=== PATIENT | female | born 1935 | race Caucasian/White ===

== ENCOUNTER → 2017-10-19 | Outpatient (CLI) | payer OTHER ==
[~2017-10-19] MED LIST: ASPIR 8181 MG PO; CALCIUM 500 +1 EAC5 PO; FLONASE 0.05%50 MCG NASAL; METFORMIN HCL500 MG PO; SIMVASTATIN40 MG PO; SIMVASTATIN80 MG PO; THERA M PLUS T1 EAC2 PO; TUMS PO; TYLENOL EXTRA500 MG PO; UNICOMPLEX M TA1 TA1 PO; VITAMIN D32000 UNI1 PO; XARELTO10 MG PO; XARELTO20 MG PO
--- NOTE | ~2017-10-19 | 2DMMODE ---
[facility] [place] [address] 2 D/M-MODE ECHOCARDIOGRAM Name: ROBERT SON Room #: REG [facility]#: [id number] Admission: 10/19/17 Attend Phys: Blaine Arreola Discharge: Date of : 39 Date of Service: 10/19/17 1203 Report #: [id number] THIS REPORT FOR: //name// APPROVED REPORT Study performed: 10/19/2017 10:21:28 EXAM: Comprehensive 2D, Doppler, and color-flow Echocardiogram Patient Location: Out-Patient Status: routine BSA: 1.96 HR: 55 bpm BP: 136/63 mmHg Rhythm: NSR Other Information Study Quality: Adequate/lung artifact. Low parasternal window. Indications Afib, chest pain, short of breath. 2D Dimensions RVDd: 35.54 mm LVEF(%): 52.27 (>50%) IVSd: 9.41 (7-11mm) LVOT Diam: 19.80 (18-24mm) LVDd: 44.96 mm PWd: 7.89 (7-11mm) LVDs: 32.97 (25-40mm) Aortic Root: 32.70 mm Brooke's LVEF: 52.27 % Volumes Left Atrial Volume (Systole) Single Plane 4CH: 28.32 mL Single Plane 2CH: 40.95 mL LA ESV Index: 20.00 mL/m2 Aortic Valve AoV Peak Mo.: 1.52 m/s AO Peak Gr.: 9.24 mmHg LVOT Max P.26 mmHg LVOT Max V: 1.03 m/s JONATHAN Vmax: 2.09 cm2 Mitral Valve E/A Ratio: 1.[address] [facility] [address] [place] [address] 2 D/M-MODE ECHOCARDIOGRAM Name: ROBERT SON Room #: [facility]#: [id number] Admission: 10/19/17 Attend Phys: Blaine Arreola Discharge: Date of : 39 Date of Service: 10/19/17 1203 Report #: [id number] MV Decel. Time: 223.24 ms MV E Max Mo.: 0.77 m/s MV A Mo.: 0.68 m/s MV PHT: 64.74 ms IVRT: 110.73 ms Pulmonary Valve PV Peak Mo.: 0.94 m/s PV Peak Gr.: 3.55 mmHg Pulmonary Vein P Vein S: 0.74 m/s P Vein A: 0.39 m/s P Vein D: 0.49 m/s P Vein A Dur.: 110.7 msec P Vein S/D Ratio: 1.51 Tricuspid Valve TR Peak Mo.: 2.93 m/s RAP Estimate: 5.00 mmHg TR Peak Gr.: 34.33 mmHg PA Pressure: 39.00 mmHg Left Ventricle The left ventricle is normal size. There is normal LV segmental wall motion. There is normal left ventricular wall thickness. Left ventricular systolic function is normal. LVEF is 55-60%. Moderate diastolic dysfunction is present (pseudonormal filling). Right Ventricle The right ventricle is normal size. The right ventricular systolic function is normal. Atria The left atrium size is normal. The right atrium size is normal. Aortic Valve Aortic valve leaflets are mildly thickened. No aortic regurgitation is present. There is no aortic valvular stenosis. Mitral Valve Mitral valve leaflets are mildly thickened. Trace mitral regurgitation. Tricuspid Valve The tricuspid valve is normal in structure. Mild to moderate tricuspid regurgitation. Estiamted PAP is 40mmHg. Pulmonic Valve [address] [address] 2 D/M-MODE ECHOCARDIOGRAM Name: ROBERT SON Room #: REG [facility]#: [id number] Admission: 10/19/17 Attend Phys: [facility] Discharge: Date of : 39 Date of Service: 10/19/17 1203 Report #: [id number] The pulmonary valve is normal in structure. There is no pulmonic valvular regurgitation. Great Vessels The aortic root is normal in size. Ascending aorta is not well visualized. IVC is normal in size and collapses >50% with inspiration. Pericardium There is no pericardial effusion. <Conclusion> The left ventricle is normal size. Left ventricular systolic function is normal. Moderate diastolic dysfunction is present (pseudonormal filling). The right ventricle is normal size. The left atrium size is normal. Aortic valve leaflets are mildly thickened. Trace mitral regurgitation. Mild to moderate tricuspid regurgitation. Estiamted PAP is 40mmHg. There is no pericardial effusion. <ELECTRONICALLY SIGNED> By: Braulio Aquino MD 10/19/173 02 02 Braulio Aquino MD /INF
== END ==
LOC: NUC 07:18
DX: E78.5 Hyperlipidemia, unspecified (principal); R73.03 Prediabetes; I48.91 Unspecified atrial fibrillation; I07.1 Rheumatic tricuspid insufficiency

== ENCOUNTER → 2017-10-21 | Outpatient (CLI) | payer OTHER ==
[~2017-10-21] VITALS: Ht 170.2 cm; Wt 83.9 kg
--- NOTE | ~2017-10-21 | P ---
[facility] [place] [address] PROCEDURE REPORT Name: ROBERT SON Room #: REG [facility].#: [id number] Admission: 10/21/17 Attend Phys: Blaine Arreola MD Discharge: Date of : 39 Report #: [id number] THIS REPORT FOR: //name// CC: Kwesi Arreola PROCEDURE: Implantable loop recorder removal. PREOPERATIVE DIAGNOSIS: Implantable loop recorder elective replacement indicator. POSTOPERATIVE DIAGNOSIS: Implantable loop recorder elective replacement indicator. DESCRIPTION OF PROCEDURE: The patient was brought to the procedure suite. She was prepped in a sterile fashion. I injected lidocaine at the prior incision site. Incision was made and the implantable loop recorder was removed. A suture was placed and dressing was placed. There was no significant bleeding and no complications. <ELECTRONICALLY SIGNED> By: Blaine Arreola MD 11/15/1704 1120 27 Blaine Arreola MD /nt
[2017-10-21 10:31] VITALS: BP 117/57
== END | disposition home or self-care (01) ==
LOC: CATH 09:50
DX: Z45.2 Encounter for adjustment and management of vascular access device (principal); I48.0 Paroxysmal atrial fibrillation; M19.90 Unspecified osteoarthritis, unspecified site; Z85.3 Personal history of malignant neoplasm of breast; Z98.890 Other specified postprocedural states; I49.9 Cardiac arrhythmia, unspecified

== ENCOUNTER → 2017-10-27 | Outpatient (CLI) | payer OTHER ==
[~2017-10-27] VITALS: Ht 170.2 cm; Wt 83.9 kg
--- NOTE | ~2017-10-27 | EKG ---
[address] [address] ELECTROCARDIOGRAM REPORT Name: ROBERT SON Room #: [facility]#: [id number] Admission: 10/27/17 Attend Phys: Braulio Aquino MD Discharge: Date of : 39 Report #: [id number] THIS REPORT FOR: //name// [facility] Test Date: 2017-10-27 Test Time: 07:42:33 Pat Name: ROBERT SON Department: Room: Gender: F Algebra Teacher: Héctor ROBERT : 1935 Requested By: Braulio Aquino Order Number: [id number] MD: Blaine Arreola Measurements Intervals Page Rate: 60 P: 20 MO: 172 QRS: 26 QRSD: 100 T: 32 QT: 423 QTc: 423 Interpretive Statements Sinus rhythm No previous ECG available for comparison Electronically Signed On 10-27-2017 8:19:27 BINDERY LEADPERSON by Blaine Arreola [email or web address] <ELECTRONICALLY SIGNED> By: Blaine Arreola MD 10/27/17 0819 0742 0742 Blaine Arreola MD /TAHIRA
--- NOTE | ~2017-10-27 | CATHLAB ---
[facility] [place] [address] INVASIVE PROCEDURE REPORT Name: ROBERT SON Room #: REG [facility]#: [id number] Admission: 10/27/17 Attend Phys: Braulio Aquino MD Discharge: Date of : 39 Date of Service: 10/27/17 1350 Report #: [id number] THIS REPORT FOR: //name// APPROVED REPORT Patient Details Patient Status: Out-Patient Room #: The patient is a 82 year-old female Event Personnel Braulio Aquino Housing Officer, Emmanuel Villafana RN, Maikel Acosta Monitor, Rnada Gandhi, [place] Procedures Performed Art Access - R femoral artery* Left Heart Cath w/or w/o Coronaries [id number] [facility] [address] Initial Mod Sed Same Phys/QHP 5y [id number] Indication Positive stress test, Chest pain Risk Factors Hypercholesterolemia, Hypertension Procedure Narrative The Right Groin^ was infiltrated with 1% Lidocaine subcutaneous anesthesia. A PINNACLE 4FR Sheath #[id number] sheath was inserted into the RFA^. Coronary angiography was performed using coronary diagnostic catheters. The right coronary system was accessed and visualized with a JR4 catheter. The left coronary system was accessed and visualized with a JL4 catheter. The left ventricle was accessed and visualized with a Pigtail catheter. Left ventricular/Aortic Valve gradient assessed via catheter pullback. Left ventriculogram was performed in 30 degree projection. Hemostasis was obtained with manual pressure following sheath removal without any complications. The patient tolerated the procedure well and there were no complications associated with the procedure. There was no hematoma. Intraoperative Conscious Sedation Sedation start time: 09:34 Case end Time: 09:44 Versed 1.5 mg Fluoro Time: 1.46 minutes [facility] [place] [address] INVASIVE PROCEDURE REPORT Name: ROBERT SON Yaneli Room #: REG [facility]#: [id number] Admission: 10/27/17 Attend Phys: Braulio Aquino MD Discharge: Date of : 39 Date of Service: 10/27/17 1350 Report #: [id number] Dose: 291 mGy Contrast Type and Amount: Omnipaque 105 ml Coronary Angiography The patient's coronary anatomy is right dominant. Diagnostic Cath Left Main Large-caliber vessel, patent with no flow-limiting lesions. LAD Moderate size caliber vessel, traveling down the anterior wall in a tortuous pattern. Patent vessel with no flow-limiting lesions. Diagonal 1 Patent vessel, with no flow-limiting lesions. Circumflex Patent vessel, with no flow-limiting lesions. OM1 Patent vessel, with no flow-limiting lesions. Right Coronary Large, dominant vessel with mild stenosis in the proximal segment, 10%. R PDA Patent vessel, with no flow-limiting lesions. RPLV Patent vessel, with no flow-limiting lesions. Left Ventriculography The left ventricle is normal in size with normal contractility. Hemodynamics The aortic pressure is 117/65 mmHg with a mean of 86 mmHg. The left ventricular pressure is 121/5 mmHg with a mean of mmHg. The left ventricular end diastolic pressure is 17 mmHg. Conclusion 1. Angiographically normal left coronary artery. 2. 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 3. Normal LV systolic function. 4. Recommend medical therapy. <ELECTRONICALLY SIGNED> By: Braulio Aquino MD 10/27/17 1350 1350 1350 Braulio Aquino MD /INF
[2017-10-27 07:33] LABS: HEMATOCRIT 37.5 % (37.0-47.0); HEMOGLOBIN 12.8 gm/dL (12.0-15.0); MCH 31.4 pg (26.0-34.0); MCHC 34.2 g/dL (28.0-37.0); MCV 91.8 fL (80.0-100.0); RBC 4.09 mil/uL (4.20-5.00); RDW 13.7 % (10.5-14.5); WBC 5.7 thou/uL (4.0-11.0)
[2017-10-27 07:36] LABS: CALCIUM 9.5 mg/dL (8.5-10.1); CREATININE 0.7 mg/dL (0.6-1.0); POTASSIUM 4.2 mmol/L (3.5-5.1)
== END | disposition home or self-care (01) ==
LOC: CATH 06:47
PROVIDERS: Internal Medicine Cardiovascular Disease
DX: I25.10 Atherosclerotic heart disease of native coronary artery without angina pectoris (principal); I10 Essential (primary) hypertension; E78.00 Pure hypercholesterolemia, unspecified; I48.91 Unspecified atrial fibrillation; M19.90 Unspecified osteoarthritis, unspecified site; G47.33 Obstructive sleep apnea (adult) (pediatric); Z96.653 Presence of artificial knee joint, bilateral; Z98.890 Other specified postprocedural states; Z85.3 Personal history of malignant neoplasm of breast; Z79.82 Long term (current) use of aspirin; Z79.899 Other long term (current) drug therapy

== ENCOUNTER 2019-06-15 07:40 | Inpatient (IN) | payer OTHER ==
[~2019-06-15] VITALS: Ht 170.2 cm; Wt 90.7 kg
[2019-07-26] MEDS ORDERED: XALATAN2.5 ML OPHTHALMIC (14:56)
[2019-07-27 10:49] LABS: HEMATOCRIT 39.7 % (37.0-47.0); HEMOGLOBIN 13.1 gm/dL (12.0-15.0); MCH 30.7 pg (26.0-34.0); MCV 93.1 fL (80.0-100.0); RBC 4.26 mil/uL (4.20-5.00); RDW 13.5 % (10.5-14.5); WBC 5.7 thou/uL (4.0-11.0)
[2019-07-27 10:50] LABS: URINE BILIRUBIN NEGATIVE (Negative); URINE BLOOD NEGATIVE (Negative); URINE CLARITY CLEAR; URINE COLOR YELLOW; URINE GLUCOSE-RANDOM* NEGATIVE (Negative); URINE KETONES NEGATIVE (Negative); URINE LEUKOCYTES-REFLEX NEGATIVE (Negative); URINE NITRITE-REFLEX NEGATIVE (Negative); URINE PROTEIN (DIPSTICK) NEGATIVE (Negative); URINE UROBILINOGEN 0.2 E.U./dl (0.2-1.0)
[2019-07-27 10:58] LABS: ALBUMIN 3.8 g/dL (3.4-5.0); CALCIUM 9.6 mg/dL (8.5-10.1); CREATININE 0.8 mg/dL (0.6-1.0); POTASSIUM 4.5 mmol/L (3.5-5.1)
[2019-07-27 11:01] LABS: PROTIME 10.1 Seconds (9.3-11.4)
--- NOTE | 2019-07-27 16:29 | EKG ---
[address] [address] ELECTROCARDIOGRAM REPORT Name: ROBERT SON Room #: [facility]#: [id number] Admission: Attend Phys: Reyes Ng MD Discharge: Date of : 39 Report #: [id number] THIS REPORT FOR: //name// [facility] Test Date: 2019-07-27 Test Time: 10:43:51 Pat Name: ROBERT SON Department: Room: Gender: F Cloth Designer: GEORGE ARCE : 1935 Requested By: Reyes Ng Order Number: [id number] MD: Blaine Arreola Measurements Intervals [place] Rate: 57 P: -20 AL: 170 QRS: 22 QRSD: 100 T: 33 QT: 413 QTc: 402 Interpretive Statements Sinus rhythm Minimal ST elevation, anterior leads Compared to ECG 10/27/2017 07:42:33 ST (T wave) deviation now present Electronically Signed On 07-27-2019 16:29:09 CDT by Blaine Arreola [email or web address] <ELECTRONICALLY SIGNED> By: Blaine Arreola MD 07/27/19 1629 1043 Blaine Arreola MD /TAHIRA
[2019-07-28 02:06] LABS: GLYCOHEMOGLOBIN (HGB A1C) 5.9 % (4.8-5.6)
[2019-08-09 12:29] VITALS: BP 113/55
[2019-08-09 19:31] VITALS: BP 99/50
--- NOTE | 2019-08-10 04:02 | NUR ---
ASSUMED CARE OF PT @1900 PT A&OX4. RT DRESSING INTACT, LATISHA AND AND POLAR PACK INPLACE. UP WITH ASSISTX1 TO THE BATHROOM. KNEE PRECAUTION IN PLACE. NEUROVASCULAR CHECK, SENSATION AND CIRC INTACT. WEARS CPAP @ NIGHT. IV INTACT IN LFT HAND FLUIDS AND ABX INFUSING. WILL CONT WITH POC TILL EOS.
[2019-08-10 04:29] VITALS: BP 98/52
[2019-08-10 06:09] LABS: HEMATOCRIT 30.3 % (37.0-47.0); HEMOGLOBIN 10.1 gm/dL (12.0-15.0); MCH 31.3 pg (26.0-34.0); MCHC 33.2 g/dL (28.0-37.0); MCV 94.3 fL (80.0-100.0); RBC 3.22 mil/uL (4.20-5.00); RDW 13.7 % (10.5-14.5); WBC 9.6 thou/uL (4.0-11.0)
[2019-08-10 08:00] VITALS: BP 107/55
[2019-08-10 13:35] VITALS: BP 107/55
--- NOTE | 2019-08-10 14:09 | NUR ---
PT ADMITTED RELATED TO RIGHT TKA. CM REVIEWED CHART AND SPOKE WITH CARE TEAM. CM MET WITH PT AT BEDSIDE THIS DAY. PT IS A&O X4. CM ROLE INTRODUCED. PT INDICATED THAT SHE LIVES ALONE IN AN APARTMENT WITH 2 STEPS TO ENTER AND NO STEPS INSIDE. PT INDICATED SHE HAD A FWW AND A TOLIET RISER FOR USE AT HOME. PT INDICATED SHE WOULD LIKE [facility] FOR PT UPON [place]. THEY ARE ABLE TO ACCEPT PT UPON [place] ANDITIPATED THIS DAY. PT INDICATED THAT HER DTR IS A NURSE AND THAT SHE IS GOING TO STAY WITH HER UNTIL WEDNESDAY. PT'S DTR WILL PROVIDE TRANSPORT HOME IN PERSONAL VEHICLE.
--- NOTE | 2019-08-10 14:53 | NUR ---
FAXED REFERRAL TO [facility] SPOKE WITH AMAURY IN INTAKE AND SHE RECEIVED REFERRAL AND CAN ACCEPT PT. PT DISCHARGING TODAY FAXED DC ORDERS/SUMMARY TO [facility] THEY WILL NOTIFY PT TIME OF VISITS.
--- NOTE | 2019-08-10 16:06 | PATH ---
[facility] [place] [address] PATHOLOGY RPT PROCEDURE Name: ROBERT SON Room #: 441-P ADM IN M.R.#: [id number] Admission: 08/09/19 Date of : 39 Discharge: Report #: [id number] Path Case #: [id number] [facility] Accession Number: [id number] . 01 Material submitted: . knee - RIGHT KNEE SYNOVIUM,FS. Modifiers: right . 02 Frozen section diagnosis: . FROZEN SECTION DIAGNOSIS: (Denise De La Torre M.D.): . FSA1. Synovium, right knee synovium, biopsy: - Scattered areas/foci with acute inflammation, neutrophils greater than 5/HPF. . These findings are discussed with Dr. Reyes Ng in OR5 at [facility] and a written report is placed in the patient's chart. . FROZEN SECTION GROSS DESCRIPTION: The specimen is received fresh from the OR labeled with the patient's name, and "right knee synovium" consists of an aggregate of shiny soft tissue fragment measuring approximately 3.5 x 3.0 x 1.0 cm. The shiny surface resembling synovium grossly is submitted for frozen section as FSA1, this is subsequently submitted for permanent section. The unfrozen portion of the tissue is submitted entirely in A2-A4. (IUV/db; 08/09/2019) . Frozen section performed at [facility], [address], [place] [address]. IZV/LBQ . 02 Diagnosis: Synovium, right knee synovium, biopsy: - Scattered foci of acute inflammation present (greater than 5/hpf), see comment. - Background of marked cellularity comprised of chronic inflammation, macrophages including giant cell reaction associated with focal dystrophic calcifications, consistent with reparative/reactive changes. - Reactive synovial hyperplasia. (IUV:pit; 08/10/2019) QTP 08/10/2019 1348 Local . 02 Comment: Greater than 10 high power ashraf are examined including the frozen section slides as well as the permanent section slides in blocks A1 to A4, several foci of acute inflammation are identified. However, the background is markedly cellular with chronic inflammation, macrophages, as [facility] [address] [place] [address] PATHOLOGY RPT PROCEDURE Name: RICHIE SONYELITZA Groves Room #: 441-P ADM IN M.R.#: [id number] Admission: 08/09/19 Date of : 39 Discharge: Report #: [id number] Path Case #: [id number] well as giant cells present. As suggested intraoperatively, clinical correlation is required. (IUV:pit; 08/10/2019) . 02 Electronically signed: . Denise De La Torre MD, Pathologist NPI- [id number] . 01 Gross description: . SEE FROZEN SECTION GROSS DESCRIPTION. To be dictated by the pathologist /LBQ 08/09/2019 1718 Local . 02 Pathologist provided ICD-10: M65.9 . 02 CPT . 307952, [id number] Specimen Comment: A courtesy copy of this report has been sent to [phone] Specimen Comment: Report sent to / DR CAMACHO Performed at: [address], [place] [id number] MD Sundeep Fuentes MD Phone: [phone] Performed at: [address] [id number] MD Denise De La Torre MD Phone: [phone]
--- NOTE | 2019-08-10 17:00 | NUR ---
ASSUMED CARE OF PT AT 1130 FROM AM NURSE. PT DOING WELL POST OP AMBULATING STEADY W/ WALKER. PAIN CONTROLLED W/ MEDS. DISCHARGE AT THIS TIME AFTER DISCHARGE TEACHING.
--- NOTE | 2019-08-13 09:28 | O ---
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 PROCEDURE: Revision of right total knee arthroplasty, all three components. SURGEON: Reyes Ng MD. GAME SHOW HOST: Steph Gong PA-C. INDICATIONS FOR GAME SHOW HOST: Throughout the case, extensive retraction and manipulation of the knee was required. This was afforded to me by my printer assistant. ANESTHESIA: LMA with an adductor canal block. IMPLANTS: Mehta and Nephew size 5 Legion Oxinium constrained revision femoral component with a 15 x 160 femoral stem and a 6 mm offset machine presser size 4 tibia with a 16 x 160 mm stem and a 2 mm offset machine presser and a size 18 highly constrained articular polyethylene insert and a size 32 patella. TOURNIQUET TIME: 76 minutes. ESTIMATED BLOOD LOSS: 50 mL. COMPLICATIONS: None. SPECIMENS: Cultures were sent x 2 as well as intraoperative frozen section. CONDITION UPON LEAVING THE OPERATING ROOM: Stable. INDICATIONS FOR PROCEDURE: The patient is an 84-year-old female who has previously had a right total knee arthroplasty over 15 years ago. She has had progressive pain in this knee as well as signs of aseptic loosening secondary to polyethylene wear on her x-ray. We revised her left knee about a year ago and she did well with this and elected for right knee revision. [address] [address] OPERATIVE REPORT Name: ROBERT SON Room #: 441-P DIS IN .R.#: [id number] Admission: 08/09/19 Attend Phys: Reyes Ng MD Discharge: 08/10/19 Date of : 39 Report #: [id number] DESCRIPTION OF PROCEDURE: Risks, benefits, alternatives, complications were discussed in detail with the patient including but not limited to risk of anesthesia, risk of damage to nerves, arteries, blood vessels, risk for infection, bleeding, risk for continued knee pain and need for reoperation. Informed consent was obtained from the patient. Right knee was appropriately marked in the preoperative holding area. IV Ancef was given for preoperative antibiotics. Adductor canal block was placed by Anesthesia. She was brought to the operating room and placed in supine position on operating room table. LMA anesthesia was induced without complication. Tourniquet was placed on the right thigh. Right lower extremity was prepped and draped in normal sterile fashion. Timeout was performed properly identifying the patient and procedure as well as the instrumentation and implants. All in the operating room were in agreement. Right lower extremity was exsanguinated, tourniquet was inflated. Tourniquet time was 76 minutes. Previous scar was used and this was excised with a #10 blade. Dissection was then taken down sharply to the fascia and deep flaps were developed medially and laterally. Fresh 10-blade was used to make a medial parapatellar arthrotomy and there was normal-appearing joint fluid. Cultures of this were taken x 2. Synovial samples were taken and sent to pathology for intraoperative frozen, which did show some neutrophils per high power field; however, it was felt that this was still aseptic loosening secondary to a negative workup preoperatively. The polyethylene insert was removed and the femoral component was easily removed with dissection using curved osteotome. There was extensive osteolysis of the medial and lateral femoral condyles. After this, attention was then turned to the tibia. The tibia component was easily removed and this was popped out with just one hit with the osteotome. There was extensive osteolysis of the tibial plateau also. After this, the femoral and tibial canals were sequentially reamed up to a size 15 for the femur and a size 16 for the tibia. Tibial resection guide was pinned in place using the reamer for reference and a tibial cleanup cut was made. Tibia was sized, found to be a size 4 that fit best with a 2 mm offset machine presser. The tibia was prepared and the tibial trial was placed. Attention was then turned to the femur. The size 5 femur resection guide fit best and was pinned in place. Anterior, posterior and chamfer cuts were made. There was enough distal and posterior bone wedges were needed. The femur fit best with a 6 mm offset machine presser in the 6 o'clock position. After this, femoral trial was placed. This was then trialed with multiple polyethylene insert up to a size 18 constrained insert, which had the best fit. After this, the previous patellar component was removed with an oscillating saw and a size 32 patellar trial button was placed. Knee was taken through range of motion, found to be stable, found to have good balance in flexion and extension both medially and laterally. After this, trial components were removed. Bony ends were thoroughly irrigated with normal saline. The final tibial and femoral implants were cemented in place using standard cementation techniques as well as the patella was cemented using standard cementation techniques. While the cement cured, a periarticular injection consisting of morphine, ropivacaine, epinephrine and Toradol was placed around the knee joint capsule. After the cement cured, tourniquet was [facility] [address] [place] [address] OPERATIVE REPORT Name: ROBERT SON Yaneli Room #: 441-P [facility] IN M.R.#: [id number] Admission: 08/09/19 Attend Phys: Reyes Ng MD Discharge: 08/10/19 Date of : 39 Report #: [id number] deflated. Hemostasis was obtained with Bovie cautery. Final size 18 highly constrained polyethylene insert was placed. A gram of vancomycin was placed deep in the joint. The fascia was closed with 0 Vicryl, skin was closed with 2-0 Vicryl, skin staple and a LATISHA dressing was applied. The patient tolerated this procedure well and went to recovery room under care of anesthesia postoperatively. <ELECTRONICALLY SIGNED> By: Reyes Ng MD 08/13/19 0928 1755 1918 Reyes Ng MD /nt
== END 2019-08-10 18:47 | disposition home health service (06) | DRG 468 ==
LOC: OR 07:40 → EDSTATUS 07:52 → PRE 07:53 → 4S 08-09 10:44 → TBA 08-09 10:44 → PRE 08-09 11:05 → 4S 08-09 18:08 → ENTRNSPT 08-10 17:02 → 4S 08-10 18:47
PROVIDERS: ADMIT Orthopaedic Surgery
DX: T84.032A Mechanical loosening of internal right knee prosthetic joint, initial encounter (principal); Z79.899 Other long term (current) drug therapy
CPT/HCPCS: 10102; 50010; 50101; 50415; 50954; 51130; 51225; 51320; 51412; 52001; 52282; 53000; 53078; 55389; 56528; 57095; 57103; 57110; 57180; 62110; 62900; 64039; 70005

== ENCOUNTER 2019-08-11 14:36 | Inpatient (IN) | payer OTHER ==
[~2019-08-11] VITALS: Ht 170.2 cm; Wt 92.5 kg
[~2019-08-11 14:36] MED LIST changes: +XALATAN2.5 ML OPHTHALMIC
[2019-08-11 14:42] VITALS: BP 76/38
[2019-08-11 15:16] LABS: HEMATOCRIT 30.5 % (37.0-47.0); HEMOGLOBIN 10.3 gm/dL (12.0-15.0); MCH 31.6 pg (26.0-34.0); MCHC 33.9 g/dL (28.0-37.0); MCV 93.2 fL (80.0-100.0); PLATELET COUNT 187 thou/uL (150-400); RBC 3.27 mil/uL (4.20-5.00); RDW 13.9 % (10.5-14.5); WBC 5.8 thou/uL (4.0-11.0)
[2019-08-11 15:24] LABS: ANION GAP 8 mmol/L (7-16); BUN 15 mg/dL (7-18); CALCIUM 8.4 mg/dL (8.5-10.1); CHLORIDE 100 mmol/L (98-107); CO2 27 mmol/L (21-32); CREATININE 0.9 mg/dL (0.6-1.0); GLUCOSE 238 mg/dL (74-106); POTASSIUM 3.9 mmol/L (3.5-5.1); SODIUM 135 mmol/L (136-145)
[2019-08-11 15:34] LABS: ALBUMIN 2.9 g/dL (3.4-5.0); DIRECT BILIRUBIN 0.1 mg/dL (<0.1-0.3); SGOT 20 U/L (15-37); SGPT 12 U/L (30-65); TOTAL BILIRUBIN 0.4 mg/dL (<0.1-1.0); TOTAL PROTEIN 6.1 g/dL (6.4-8.2); TROPONIN-I <0.06 ng/mL (<0.06)
--- NOTE | 2019-08-11 15:44 | NUR ---
US CALLED, ENROUTE TO OBTAIN ORDERED EXAM
[2019-08-11 15:49] LABS: ABSOLUTE NEUTROPHILS 3.5 thou/uL (1.4-8.2)
[2019-08-11 15:50] LABS: SCHISTOCYTES OCCASIONAL
[2019-08-11 19:40] VITALS: BP 127/50
[2019-08-11 19:58] VITALS: BP 114/47
--- NOTE | 2019-08-12 03:11 | NUR ---
ARRIVED ON UNIT AT 1950 VIA CART ACCOMPANIED BY ED PERSONEL AND FAMILY. PATIENT ALERT AND ORIENTED X4. R LEG EDEMATOUS, RED IN SPOTS AND WARM TO TOUCH. PATIENT STATES CAN NOT EVEN LIFT HER LEG. LATISHA DRESSING ON R KNEE D/I. POLAR PAC ON R KNEE. ACCUCHECK WAS 109, NO INSULIN GIVEN. C/O PAIN, MED GIVEN. SLEPT MOST OF NIGHT.
[2019-08-12 04:19] VITALS: BP 109/46
[2019-08-12 06:05] LABS: CALCIUM 8.8 mg/dL (8.5-10.1); CREATININE 0.7 mg/dL (0.6-1.0); POTASSIUM 3.6 mmol/L (3.5-5.1)
[2019-08-12 08:16] VITALS: BP 108/46
--- NOTE | 2019-08-12 10:38 | NUR ---
PATIENT GIVEN PRN PAIN MED IS USING BSC, APPETITE GOOD. HAS POLAR WILBERTO INTACT TO RIGHT KNEE. THERAPY TO WORK WITH PATRIENT.
[2019-08-12 17:53] VITALS: BP 116/52
[2019-08-12 20:50] VITALS: BP 105/46
--- NOTE | 2019-08-13 03:00 | NUR ---
SUNDAYNET ALERT AND ORIENTED X4. UP TO BSC. ABLE TO MOVE R LEG SOME BY SELF. POLAR ICE ON R KNEE WITH LATISHA DRESSING UNER. C/O PAIN, MED GIVEN. ACCUCHECK WAS 125, NO INSULIN COVERAGE NEEDED. SLEPT MOST OF NIGHT.
[2019-08-13 05:05] VITALS: BP 102/49
[2019-08-13 08:57] VITALS: BP 99/43
--- NOTE | 2019-08-13 10:46 | NUR ---
DR GLEASON HERE TO SEE PATIENT ASSESSED RIGHT KNEE STATES IS OKAY SHE NEEDS UP IN CHAIR AND WORKING WITH THERAPY ALSO PUT IN ORDER TO HAVE X- RAY. DR ANGEL HERE ALSO AND TOLD PATIENT SAME THINGS. PT IS PLEASANT AND COOPERATIVE AND IS UP IN BEDSIDE CHAIR AT THIS TIME.
--- NOTE | 2019-08-13 11:20 | EKG ---
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
[2019-08-13 17:12] VITALS: BP 109/60
[2019-08-13 19:20] VITALS: BP 119/61
--- NOTE | 2019-08-13 23:54 | NUR ---
ASSESSMENT COMPLETED. PT IS ALERT AND ORIENTED. R KNEE WITH LATISHA DRSG INTACT. POLAR WILBERTO ALSO IN PLACE.R KNEE WITH SWELLING, PT GIVEN HYDROCODONE PRN WITH RELIEF. SHE WALKED WELL TO THE BATHROOM USING ROLLER WALKER.VSS. ROOM AIR AND SATTING OKAY.FALL PREC IN PLACE.NO FURTHER CONCERNS AT THIS TIME.
[2019-08-14 04:25] VITALS: BP 114/59
[2019-08-14 07:47] VITALS: BP 105/58
--- NOTE | 2019-08-14 11:36 | NUR ---
PT A&0X4, IV INTACT IN L AC. LATISHA DRSG TO R KNEE INTACT WITH POLAR PACK. TOLERATING PO WELL. SITTING IN CHAIR AFTER UP WITH PT. WILL CONT POC.
--- NOTE | 2019-08-14 12:47 | NUR ---
PATIENT SEEN BY DR. CANNON THIS DATE FOR REHAB CONSULT. PATIENT DOES NOT HAVE MEDICAL NECESSITY FOR ACUTE REHAB STAY. STOCK ROOM MANAGER INFORMED. THANK YOU FOR THIS REFERRAL.
--- NOTE | 2019-08-14 16:38 | NUR ---
ASSESSMENT-PT LIVES ALONE. SHE HAS A DTR HERE, ANOTHER DTR IN [place] AND ANOTHER IN [place]. PT HAS A ROLLER WALKER TO GET AROUND AND PRIOR TO SURGERY WAS TAKING A SHOWER. PT WAS DISCHARGED ON WITH [facility] MULLIGAN AND READMITTED ON WEDNESDAY. 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 PT IS INTERESTED IN REHAB AND WANTED TO GO TO [address]. DR CANNON DID EVAL AND SAYS PT DOES NOT HAVE MEDICAL NECESSITY. DISCUSSED SKILLED REHAB FACILITIES WITHIN [facility] AND SHE WAS INTERESTED IN [facility] BUT THEY ARE FULL. SHE WANTS [facility] OR [facility] IN THAT ORDER. ASKED DC ASTROBIOLOGIST TO SEND REFERRALS AND SUBMIT FOR INS AUTH. FOLLOWING.
[2019-08-14 16:54] VITALS: BP 114/46
--- NOTE | 2019-08-14 16:55 | NUR ---
FAXED REFERRAL TO [facility] SPOKE WITH KAYLI IN ADM SHE RECEIVED REFERRAL AND CAN ACCEPT WILL LOOK INTO BED STATUS IN THE AM. FAXED REFERRAL TO [facility] OF OP RECEIVED CONFIRMATION AND WILL F/U WITH FACILITY IN THE MORNING. DP TO FOLLOW.
[2019-08-14 20:05] VITALS: BP 110/46
--- NOTE | 2019-08-15 04:29 | NUR ---
Assumed pt care at 1900. Pt is A/OX4,VSS. Up with assist of 1 RW/GB to bathroom verbalizes feeling much better in terms of pain and requested for Tylenol at HS with relief reported. Pt is continent of B&B. LATISHA dsg/polar pack in place on right knee w/o any problems reported. Fall precautions implemented,resting quietly at this time. Will continue to monitor pt.
[2019-08-15 04:30] VITALS: BP 109/52
[2019-08-15 08:22] VITALS: BP 102/45
--- NOTE | 2019-08-15 09:44 | NUR ---
PT UP IN BEDSIDE CHAIR TOOK AM MEDS ATE BREAKFAST. BLOOD SUGAR MONITORED. PICCO DRESSING INTACT TO RIGHT KNEE. PT GIVEN PRN PAIN MED AND IS WORKING WITH THERAPY. PT PLEASANT AND COOPERATIVE WITH CARE.
[2019-08-15 12:13] VITALS: BP 102/45
--- NOTE | 2019-08-15 12:13 | NUR ---
Following for d/c planning needs. Reviewed chart and spoke with nurse and pt. Pt now states she wants to return home with home health, and is not interested in going to SNF. Notified production planner to arrange home health. Pt was on service with [facility] and wants to resume. No other needs indicated.
[2019-08-15 12:24] VITALS: BP 102/45
--- NOTE | 2019-08-15 13:56 | NUR ---
DISCHARGE PAPERS GONE OVER WITH PATIENT SIGNED AND COPY IN CHART. IV ACSESS DCD. ALL BELONGINGS PACKED AND PATIENT TO TAKE HOME. POLAR PACK TO BE SENT WITH PATIENT SHE THOUGHT SHE LOST CORD BUT SHE HAD PACKED.
--- NOTE | 2019-08-15 14:36 | NUR ---
FAXED REFERRAL TO [facility] SPOKE WITH AMAURY IN ADM SHE RECEIVED REFERRAL AND CAN ACCEPT. FAXED DC ORDERS/SUMMARY RECEIVED CONFIRMATION AND THEY WILL NOTIFY PT TIME OF VISITS.
[2019-08-15 14:51] VITALS: BP 102/45
--- NOTE | 2019-08-16 07:23 | NUR ---
PATIENT DISCHARGED BEFORE O.T. EVALUATION ORDERED.
--- NOTE | 2019-08-22 12:00 | HC ---
[facility] [place] [address] CONSULTATION Name: ROBERT SON Room #: 437-P [facility] IN .R.#: [id number] Admission: 08/11/19 Attend Phys: Abimbola Leung MD Discharge: 08/15/19 Date of : 39 Report #: [id number] THIS REPORT FOR: //name// CC: Abimbola Leung Kwesi Jacobsy DATE OF SERVICE: 08/14/2019 HISTORY OF PRESENT ILLNESS: The patient is an 84-year-old white female admitted with a prior right total knee arthroplasty revision 08/09/2019. She initially went home, but then had more and more problems with increased pain and complains of weakness and inability to ambulate. She had problems walking. She was readmitted. Her medications have been adjusted. Ice pack applied. Working on knee range of motion again with her decreased function. We are seeing her in rehabilitation medicine consultation. PAST MEDICAL HISTORY: Includes diabetes mellitus type 2, hyperlipidemia, atrial fibrillation, degenerative arthritis. She has had prior bilateral total knee replacements and these were both done approximately 25 years ago. She had a left knee revision done last year without complication. History of obstructive sleep apnea, elevated cholesterol, glaucoma, tubal ligation. MEDICATIONS: Please see the full medication listing. SOCIAL HISTORY: Lives in an apartment alone, one step in. Did not utilize gait aids. She does have daughters that are out of state, but are involved. HABITS: No history of tobacco or alcohol abuse. REVIEW OF SYSTEMS: No current complaints of chest pain, shortness of breath or abdominal discomfort. PHYSICAL EXAMINATION: GENERAL: Pleasant 84-year-old white female in no obvious distress. VITAL SIGNS: Last recorded temperature 98.4, pulse 66, respirations 18, blood pressure 105/58. The patient is alert. She is pleasant. HEENT: Appeared to be benign. NEUROLOGIC: Cranial nerves grossly intact. Facies are symmetric. EXTREMITIES: She has functional range of motion of both upper extremities without obvious focal weakness. DTRs are trace to 1. In her lower extremities, she has a well-healed prior left total knee replacement incision. Right knee is dressed. She has ice pack in place with Keith wrap. She is able to dorsiflex the right ankle. She can flex the right hip without obvious focal weakness. She does have range of motion of the right knee, but again the ice pack is in place and I did not remove. She had physical therapy involved and they are working with her. She is min assist with sit to stand. Gait was 150 feet min assist [address] [address] CONSULTATION Name: ROBERT SON Room #: [facility]#: [id number] Admission: 08/11/19 Attend Phys: Abimbola Leung MD Discharge: 08/15/19 Date of : 37 Report #: [id number] with a front-wheeled walker. ASSESSMENT: An 84-year-old white female with following problems: 1. Revision of right total knee arthroplasty for aseptic loosening of the prosthetic knee. 2. Knee pain and complains of decreased function. 3. Diabetes mellitus. 4. Hyperlipidemia. 5. Atrial fibrillation. 6. Prior left total knee replacement. PLAN: She has improved from her admission status, although she still has weakness of the right lower extremity and decreased functional mobility and ADLs. Insurance will be checked regarding rehab therapy issues. Thank you for asking us to assist in this patient's care. <ELECTRONICALLY SIGNED> By: Maikel Galan MD 08/22/19 1200 [id number] [id number] Maikel Galan MD /nt
== END 2019-08-15 14:53 | disposition home health service (06) | DRG 947 ==
LOC: ER 14:36 → 4S 19:00 → EROBS 19:00 → 4S 20:11 → ENTRNSPT 08-15 14:31 → 4S 08-15 14:53
PROVIDERS: Emergency Medicine; Nurse Practitioner Family; ADMIT Hospitalist
DX: G89.18 Other acute postprocedural pain (principal); E43 Unspecified severe protein-calorie malnutrition; M25.561 Pain in right knee; I48.91 Unspecified atrial fibrillation; M19.90 Unspecified osteoarthritis, unspecified site; Z96.653 Presence of artificial knee joint, bilateral; M81.0 Age-related osteoporosis without current pathological fracture; E78.00 Pure hypercholesterolemia, unspecified; E78.5 Hyperlipidemia, unspecified; E11.9 Type 2 diabetes mellitus without complications; G47.33 Obstructive sleep apnea (adult) (pediatric); Z68.31 Body mass index [BMI] 31.0-31.9, adult; Z86.718 Personal history of other venous thrombosis and embolism; Z79.84 Long term (current) use of oral hypoglycemic drugs; Z79.01 Long term (current) use of anticoagulants
CPT/HCPCS: 10195

== ENCOUNTER → 2020-04-09 | Outpatient (CLI) | payer OTHER ==
--- NOTE | 2020-04-09 09:37 | 2DMMODE ---
[facility] [place] [address] 2 D/M-MODE ECHOCARDIOGRAM Name: ROBERT SON Room #: [facility]#: [id number] Admission: 04/09/20 Attend Phys: Blaine Arreola MD Discharge: Date of : 37 Report #: [id number] THIS REPORT FOR: cc: Kwesi Rocha MD, Bernard O. MD Park, Jin S. MD ~ APPROVED REPORT Study performed: 04/09/2020 08:59:04 EXAM: Comprehensive 2D, Doppler, and color-flow Echocardiogram Patient Location: Out-Patient Status: routine BSA: 1.99 HR: 55 bpm BP: 130/72 mmHg Rhythm: NSR Other Information Study Quality: Adequate/lung artifact. Low window. Indications History of Afib. 2D Dimensions RVDd: 37.23 mm IVSd: 9.17 (7-11mm) LVOT Diam: 21.64 (18-24mm) LVDd: 40.13 mm PWd: 7.85 (7-11mm) LVDs: 28.41 (25-40mm) Aortic Root: 35.47 mm Volumes Left Atrial Volume (Systole) Single Plane 4CH: 37.47 mL Single Plane 2CH: 44.35 mL LA ESV Index: 22.00 mL/m2 Aortic Valve AoV Peak Mo.: 1.44 m/s AO Peak Gr.: 8.25 mmHg LVOT Max P.39 mmHg LVOT Max V: 1.05 m/s JONATHAN Vmax: 2.68 cm2 [facility] [address] [place] [address] 2 D/M-MODE ECHOCARDIOGRAM Name: ROBERT SON Yaneli Room #: REG Dan[facility]#: [id number] Admission: 04/09/20 Attend Phys: Blaine Gabrielcox northleanna Discharge: Date of : 37 Report #: [id number] Mitral Valve E/A Ratio: 0.8 MV Decel. Time: 358.22 ms MV E Max Mo.: 0.55 m/s MV A Mo.: 0.69 m/s MV PHT: 103.88 ms IVRT: 92.27 ms Pulmonary Valve PV Peak Mo.: 1.13 m/s PV Peak Gr.: 5.15 mmHg Pulmonary Vein P Vein S: 0.47 m/s P Vein A: 0.32 m/s P Vein D: 0.37 m/s P Vein A Dur.: 147.6 msec P Vein S/D Ratio: 1.27 Tricuspid Valve TR Peak Mo.: 2.84 m/s RAP Estimate: 5.00 mmHg TR Peak Gr.: 32.24 mmHg PA Pressure: 37.00 mmHg Left Ventricle The left ventricle is normal size. There is normal LV segmental wall motion. There is normal left ventricular wall thickness. Left ventricular systolic function is normal. LVEF is 55-60%. Mild diastolic dysfunction is present (impaired relaxation pattern). Right Ventricle The right ventricle is normal size. The right ventricular systolic function is normal. Atria The left atrium size is normal. The right atrium size is normal. Aortic Valve Aortic valve leaflets are mildly thickened. No aortic regurgitation is present. There is no aortic valvular stenosis. Mitral Valve The mitral valve is normal in structure. There is no mitral valve regurgitation noted. No evidence of mitral valve stenosis. Tricuspid Valve [facility] [address] [place] [address] 2 D/M-MODE ECHOCARDIOGRAM Name: ROBERT SON Yaneli Room #: [facility]#: [id number] Admission: 04/09/20 Attend Phys: [facility] Discharge: Date of : 37 Report #: [id number] The tricuspid valve is normal in structure. Mild tricuspid regurgitation. Estimated PAP is 35-40mmHg. Pulmonic Valve Pulmonic valve is not well visualized. Trace pulmonic regurgitation. Great Vessels The aortic root is normal in size. Ascending aorta is not well visualized. IVC is normal in size and collapses >50% with inspiration. Pericardium There is no pericardial effusion. <Conclusion> The left ventricle is normal size. There is normal left ventricular wall thickness. Left ventricular systolic function is normal. Mild diastolic dysfunction is present (impaired relaxation pattern). The right ventricle is normal size. The left atrium size is normal. Aortic valve leaflets are mildly thickened. There is no mitral valve regurgitation noted. Mild tricuspid regurgitation. Estimated PAP is 35-40mmHg. <ELECTRONICALLY SIGNED> By: Braulio Aquino MD 04/09/20935 5 5 Braulio Aquino MD /INF
== END ==
LOC: CV 08:33
PROVIDERS: ATTEND Internal Medicine Cardiovascular Disease
DX: I08.2 Rheumatic disorders of both aortic and tricuspid valves (principal); I48.91 Unspecified atrial fibrillation

== ENCOUNTER → 2020-04-09 | Outpatient (CLI) | payer OTHER | LOC: SJCVC 09:27 | PROVIDERS: ATTEND Internal Medicine Cardiovascular Disease | DX: R00.1 Bradycardia, unspecified (principal); I48.0 Paroxysmal atrial fibrillation; R55 Syncope and collapse ==

== ENCOUNTER → 2020-09-03 | Outpatient (CLI) | payer OTHER | LOC: CAT 12:57 | PROVIDERS: ATTEND Orthopaedic Surgery Sports Medicine | DX: M19.012 Primary osteoarthritis, left shoulder (principal); M25.412 Effusion, left shoulder ==

== ENCOUNTER → 2020-12-05 | Outpatient (CLI) | payer OTHER ==
[~2020-12-05] MED LIST changes: +APAP650 PO; -VITAMIN D32000 UNI1 PO; +VITAMIN D350 MCG PO
== END ==
LOC: SJCVC 16:26
PROVIDERS: ATTEND Internal Medicine Cardiovascular Disease
DX: I48.0 Paroxysmal atrial fibrillation (principal); R55 Syncope and collapse; G47.33 Obstructive sleep apnea (adult) (pediatric); Z99.89 Dependence on other enabling machines and devices; E78.5 Hyperlipidemia, unspecified; Z98.890 Other specified postprocedural states; Z82.49 Family history of ischemic heart disease and other diseases of the circulatory system; Z72.89 Other problems related to lifestyle

== ENCOUNTER → 2020-12-19 | Outpatient (CLI) | payer OTHER | LOC: LAB 10:20 | PROVIDERS: ATTEND Orthopaedic Surgery Sports Medicine | DX: Z01.812 Encounter for preprocedural laboratory examination (principal); Z20.822 Contact with and (suspected) exposure to COVID-19 ==

== ENCOUNTER 2020-12-25 06:11 | Observation (INO) | payer OTHER ==
[2020-12-19 11:17] LABS: HEMATOCRIT 38.9 % (37.0-47.0); HEMOGLOBIN 12.9 gm/dL (12.0-15.0); MCH 30.9 pg (26.0-34.0); MCHC 33.2 g/dL (28.0-37.0); MCV 93.1 fL (80.0-100.0); RBC 4.18 mil/uL (4.20-5.00); RDW 13.5 % (10.5-14.5); URINE BILIRUBIN NEGATIVE (Negative); URINE BLOOD NEGATIVE (Negative); URINE CLARITY CLEAR; URINE COLOR YELLOW; URINE GLUCOSE-RANDOM* NEGATIVE (Negative); URINE KETONES NEGATIVE (Negative); URINE LEUKOCYTES-REFLEX TRACE (Negative); URINE NITRITE-REFLEX NEGATIVE (Negative); URINE PROTEIN (DIPSTICK) NEGATIVE (Negative); URINE SPECIFIC GRAVITY 1.015 (1.005-1.035); URINE UROBILINOGEN 0.2 E.U./dl (0.2-1.0); WBC 5.9 thou/uL (4.0-11.0)
[2020-12-19 11:25] LABS: CALCIUM 9.3 mg/dL (8.5-10.1); CREATININE 0.9 mg/dL (0.6-1.0); POTASSIUM 4.4 mmol/L (3.5-5.1)
[2020-12-19 11:35] LABS: PROTIME 11.3 Seconds (9.3-11.4)
[~2020-12-25] VITALS: Ht 170.2 cm; Wt 88.9 kg
[2020-12-25] VITALS (7 sets, daily range): BP systolic 102–139; BP diastolic 56–76
--- NOTE | ~2020-12-25 | O ---
[facility] [place] [address] OPERATIVE REPORT Name: ROBERT SON Room #: 150-1 [facility] M.Ifeanyi.#: [id number] Admission: 12/25/20 Attend Phys: Jameson Valles Discharge: Date of : 37 Report #: [id number] THIS REPORT FOR: cc: Odalis Zheng MD, Genelle J. MD VanDenBerghe,Jameson Iyer MD ~ DATE OF SERVICE: 12/25/2020 PREOPERATIVE DIAGNOSES: Left shoulder pain, osteoarthritis with posterior glenoid bone loss and retroversion, partial thickness rotator cuff tear, biceps tendinopathy. 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 PROCEDURES PERFORMED: Left bony increased offset reverse shoulder arthroplasty with open biceps tenodesis. SURGEON: Jameson Hutchins MD NURSE PARALEGAL: Jaymie Garland PA-C. ANESTHESIA: General with preoperative ultrasound-guided interscalene block. FLUIDS: 600 mL crystalloid. ESTIMATED BLOOD LOSS: Approximately 75 mL. IMPLANTS: DePuy Delta Xtend Global Unite stem size 10 with a size 1 left epiphysis and a +6 polyethylene cup and a +10 cementless metaglene and a standard 38+0 glenosphere. DESCRIPTION OF PROCEDURE: After proper identification of the patient and operative site in preoperative holding area, the operative site was signed by myself. Prophylactic antibiotics given. The patient elected to receive a block after reviewing the risks, benefits, alternatives and potential complications with Dr. Franks. After a satisfactory block, the patient was brought back to the operative suite after induction of satisfactory general anesthesia, the left shoulder was examined. Range of motion was limited compared to the preoperative assessment. Pronounced glenohumeral crepitus was appreciated. The patient was carefully positioned in the beach chair with head of bed elevated approximately 40 degrees. The left shoulder scapula was stabilized with 2 rolled towels. A [employer] limb positioning system was utilized throughout the entire procedure to aid in patient limb positioning. Anterior deltopectoral approach [address] [address] OPERATIVE REPORT Name: ROBERT SON Yaneli Room #: 150-1 [facility] M.R.#: [id number] Admission: 12/25/20 Attend Phys: Jameson Valles Discharge: Date of : 37 Report #: [id number] was planned and final ____. The shoulder was sterilely prepped and draped in the usual manner. It was covered with Ioban. Anterior deltopectoral approach was planned. Skin was incised sharply. Full-thickness skin flaps were developed. Cephalic vein was identified and retracted laterally. Subdeltoid adhesions were carefully released. The patient had extensive bursal thickening, which was carefully excised. There was also pronounced tenosynovitis as well as a large joint effusion, which was evacuated. Long head of the biceps tendon was tenodesed to the undersurface of the pectoralis major using #2 FiberWire. This was followed proximally with pronounced longitudinal high-grade partial thickness tearing of the biceps spurring within the bicipital groove was also noted. The patient had upper border tearing of the subscapularis with more inferior half remaining intact. This was released off of the lesser tuberosity. The patient had an anterior supraspinatus rotator cuff tear that was full thickness with high-grade partial thickness tearing noted posteriorly that extended into the infraspinatus. Cuff of tissue seemed thin and combination of a full thickness tear noted anteriorly as well as high-grade partial thickness tearing posterior to this. I was not confident in her that this would provide sufficient stabilization for a primary total shoulder. The humerus had pronounced flattening of the humeral head and based on the pronounced retroversion, a Bio-RFA was planned and at this point, bone graft was obtained from the humeral head with a guide pin placed within the humeral head. This was then reamed to accommodate the backside of the metaglene and then using the appropriate jig, this was then cut and a hole saw was used to remove this from the proximal humerus. This was then prepared on the back table and the humerus was then reamed by hand up to a size 10 stem, which matched the preoperative templating, 155 degree humeral osteotomy was performed in approximately 20 degrees matching patient's saxman version. The cuff tearing was previously noted. Peripheral osteophytes were removed. Protection plate was applied and then attention was divided to the glenoid, very thickened anterior capsule was spread bluntly from the remaining subscap, the axillary nerve was protected, and then the remaining biceps tendon and labrum was excised circumferentially. The patient had approximately 30 degrees of retroversion of the glenoid. Based on preoperative templating to provide the best fit and positioning of the glenosphere and metaglene, bony increased offset bone graft was chosen. The glenoid face was reamed and a step drill was utilized and then the more angled posterior aspect of the glenoid was gently prepared with a bur to get this back to punctate bleeding. Graft was positioned and fashioned on the back table and then placed over a +10 metaglene. Bone reamings had been saved and were also placed along this. This was then carefully impacted into position and they had good fit and stability and the angles of the bone graft osteotomy cut aligned nicely with the patient's retroversion, this was stable to rotation and then the superior and inferior locking screws were placed. These had excellent purchase followed by the anterior and then posterior screws. Posterior screw was also utilized. The locking screw where the anterior screw was a nonlocking, these were sequentially tightened. The anterior, superior and inferior once had [facility] [address] [place] [address] OPERATIVE REPORT Name: ROBERT SON Room #: 150-1 [facility].#: [id number] Admission: 12/25/20 Attend Phys: Jameson Valles Discharge: Date of : 37 Report #: [id number] excellent bone purchase, the posterior screw had fair purchase, but this was intentionally not over tensioned. Locking screws were tightened and then an acetabular reamer was used to prepare the humeral epiphysis. A 38.0 standard glenosphere was then positioned over the metaglene. Guidewire was inserted. This was fully seated and the locking screw was rotated counterclockwise until a click was noted and it was felt to be fully seated. This was then tightened and impacted and then tightened three additional times until it was fully seated, this looks stable and had some lateralization due to the bone graft component. The humeral stem was then assembled and prepared. A +6 polyethylene liner provided the best overall soft tissue tension and then the trial implants were removed. Three drill holes were placed in the anterior cortex of the humerus where #2 FiberWire was passed. The stem was assembled on the back table, impacted into position and it had good rotational stability and fit. Trial liners and then finally a +6 polyethylene liner was impacted into position. There was no evidence of impingement, good stability with range of motion testing. Joint was reduced, had been thoroughly irrigated multiple times throughout the procedure. The subscapularis was repaired with three modified Kendrick-Geoff sutures. The inferior 2 were wrapped around the stem. This was stable to external rotation without any undue tension to 40 degrees. The joint was again thoroughly irrigated and then 1 gram of vancomycin powder was utilized, half at deep, half at more superficial. Wound was closed in layers with 0 Vicryl, closing the fascial layer, 2-0 Vicryl for the subcutaneous tissues followed by running 4-0 Monocryl, sealed with Dermabond. Sterile dressing was applied as well as the patient was placed in a sling and abduction pillow. A qualified commercial lending assistant utilized throughout the entire procedure to aid in patient limb positioning, visualization with the arthroscope instrument, visualization and retraction of soft tissues, instrument passage, closure and sling and dressing application. By: 1011 1208 Jameson Hutchins MD /winston
--- NOTE | 2020-12-25 19:48 | NUR ---
12/25/20 PATIENT ADMIT TO UNIT AT 1615 POST LEFT SHOULDER SURGERY. RIGHT AC IV PRESENT ON ADMISSION. IV ABX AND FLUIDS STARTED. PATIENT NOT COMPLAINING OF ANY PAIN POST-OP. NEUROLOGY CONSULTED, AT BEDSIDE. PLAN FOR CT HEAD TONIGHT. NO FACIAL DROOP NOTED ON ASSESSMENT. NO NEURO DEFICITS NOTED. PATIENT IS COMPAINING OF NUMBNESS & TINGLING ON THE LEFT ARM, POST NERVE BLOCK IN SURGERY. DAUGHTER UPDATED AT BEDSIDE. WILL CONTINUE TO MONITOR.
[2020-12-26] VITALS (10 sets, daily range): BP systolic 100–147; BP diastolic 32–72
[2020-12-26 05:59] LABS: ABSOLUTE NEUTROPHILS 5.4 thou/uL (1.4-8.2); BASOPHILS 0.2 % (0.0-2.0); EOSINOPHILS 0.2 % (0.0-3.0); HEMATOCRIT 30.1 % (37.0-47.0); HEMOGLOBIN 10.2 gm/dL (12.0-15.0); LYMPHOCYTES 14.1 % (24.0-44.0); MCH 31.7 pg (26.0-34.0); MCHC 33.7 g/dL (28.0-37.0); MONOCYTES 16.3 % (1.0-8.0); PLATELET COUNT 178 thou/uL (150-400); POLYS 69.2 % (36.0-66.0); RDW 13.6 % (10.5-14.5); WBC 7.9 thou/uL (4.0-11.0)
[2020-12-26 06:16] LABS: CALCIUM 8.7 mg/dL (8.5-10.1); CREATININE 0.8 mg/dL (0.6-1.0); POTASSIUM 4.3 mmol/L (3.5-5.1)
--- NOTE | 2020-12-26 08:18 | NUR ---
ASSESSMENTS CHARTED, MEDS CHARTED GIVEN. PATIENT RESTING IN BED WITH WATER COOLING SYSTEM SURROUNDING HER LEFT SHOULDER. PATIENT WAS SAID TO HAVE DROOP TO LEFT EYE, AND MOUTH WITH SLURRED SPEECH, TINGLING ON LEFT SIDE. DOES NOT KNOW IF IT IS RELATED TO BLOCK FROM SURGERY OR IS SHE HAVE STROKE ISSUES. DR. SMITH CAME IN AND ORDERED CT OF HEAD WITH CONTRACT WHICH WAS UNREMARKABLE. XRAY OF SHOULDER SHOWED NO ACUTE COMPLICATIONS WITH SURGERY. PATIENT ON ABX THERAPY. BLOCK WORE OFF DURING THE NIGHT AND PATIENT EXPERIENCED PAIN 9/10. MEDS GIVEN.
--- NOTE | 2020-12-26 10:12 | 2DMMODE ---
[facility] [place] [address] 2 D/M-MODE ECHOCARDIOGRAM Name: ROBERT SON Room #: 219-P [facility] Adri M.R.#: [id number] Admission: 12/25/20 Attend Phys: Jameson Valles Discharge: Date of : 37 Report #: [id number] THIS REPORT FOR: cc: Odalis Zheng MD, Genelle J. MD Lammoglia, Francisco J. MD ~ APPROVED REPORT Study performed: 12/26/2020 09:29:53 EXAM: Comprehensive 2D, Doppler, and color-flow Echocardiogram Patient Location: Bedside Room #: 219 Status: routine BSA: 2.01 HR: 74 bpm BP: 100/32 mmHg Rhythm: NSR Other Information Study Quality: Technically limited/only one window available/on right side Technically limited study due to post op left shoulder surgery. Arm harness and cooling system. Indications Hx: Bradycardia, syncope, Afib, HLP, DM. 2D Dimensions IVSd: 8.34 (7-11mm) LVDd: 39.87 mm PWd: 9.04 (7-11mm) LVDs: 24.47 (25-40mm) Aortic Valve AoV Peak Mo.: 1.88 m/s AO Peak Gr.: 14.20 mmHg Mitral Valve E/A Ratio: 0.8 MV Decel. Time: 182.13 ms MV E Max Mo.: 0.69 m/s MV A Mo.: 0.85 m/s MV PHT: 52.82 ms [facility] [address] [place] [address] 2 D/M-MODE ECHOCARDIOGRAM Name: ROBERT SON Room #: 219-P [facility] M.R.#: [id number] Admission: 12/25/20 Attend Phys: Jameson Davila Discharge: Date of : 37 Report #: [id number] IVRT: 73.82 ms Pulmonary Vein P Vein S: 0.60 m/s P Vein A: 0.50 m/s P Vein D: 0.31 m/s P Vein A Dur.: 120.0 msec P Vein S/D Ratio: 1.94 Tricuspid Valve TR Peak Mo.: 2.99 m/s RAP Estimate: 5.00 mmHg TR Peak Gr.: 36.00 mmHg PA Pressure: 41.00 mmHg Left Ventricle The left ventricle is normal size. There is normal LV segmental wall motion. There is normal left ventricular wall thickness. Left ventricular systolic function is normal. LVEF is 60-65%. Mild diastolic dysfunction is present (impaired relaxation pattern). Right Ventricle Right ventricle is grossly normal in size and function. Atria The left atrium size is normal. The right atrium size is normal. Aortic Valve The aortic valve is not well visualized. No aortic regurgitation is present. There is no aortic valvular stenosis. Mitral Valve The mitral valve is normal in structure. There is no mitral valve regurgitation noted. No evidence of mitral valve stenosis. Tricuspid Valve The tricuspid valve is normal in structure. Mild tricuspid regurgitation. Estimated PAP is 40-45mmHg. Pulmonic Valve Pulmonic valve is poorly visualized. Great Vessels The aortic root appears normal in size. Ascending aorta is not well visualized. IVC is normal in size and collapses >50% with inspiration. [facility] [place] [place] [address] 2 D/M-MODE ECHOCARDIOGRAM Name: ROBERT SON Room #: 219-P [facility] IN .R.#: [id number] Admission: 12/25/20 Attend Phys: Jameson Davila Discharge: Date of : 39 Report #: [id number] Pericardium There is no pericardial effusion. <Conclusion> The left ventricle is normal size. There is normal LV segmental wall motion. LVEF is 60-65%. Right ventricle is grossly normal in size and function. The aortic valve is not well visualized. The mitral valve is normal in structure. The tricuspid valve is normal in structure. Mild tricuspid regurgitation. Estimated PAP is 40-45mmHg. Pulmonic valve is poorly visualized. There is no pericardial effusion. <ELECTRONICALLY SIGNED> By: Fish North MD 12/26/20 1011 1011 1011 Fish North MD /INF
--- NOTE | 2020-12-26 12:03 | NUR ---
ASSUMED CARE OF PT AT 0700 WE ARE WAITING ON SURGERY TO LET US KNOW WHEN SHE IS GOING TO DISCHARGE. PT WOULD LIKE TO GO HAVE THERAPY.
--- NOTE | 2020-12-26 16:20 | NUR ---
Case opened to follow for dc planning needs. Pt is s/p shoulder replacement. Pt seen by cardiology, neuro and rehab medicine. All parties anticipating dc to home with HH vs acute rehab. 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 She reports her dtrs are here from out of state for the next few days to help her get settled in at home. She is agreeable to HH vs acute rehab or snf and prefers to use [facility] as she has had them in the past. She has two steps to enter her condo and has supportive friends to help with f/u appts and errands. She has some frozen meals from a friend and keeps meal prep very simple. She has a cane if needed and her dtr is getting her a BSC as her toilet is low to the ground. She has a bathtub bench and is planning to sponge bath for the next few weeks. She declined SNF listing and feels good about plan for home with HH. She is hoping pain control will improve tonight and she will get a better night's sleep. Support provided. Care team updated. DC retail planner to fax referral to [facility]IG[facility] for likely dc tomorrow.
--- NOTE | 2020-12-26 16:32 | NUR ---
FAXED REFERRAL TO [facility] WITH NOTATION OF PROBABLE DISCHARGE OF TOMORROW AT 12/27/20. CONFIRMED WITH AMAURY/LIAISON SHE RECEIVED. [facility] P [phone]; FAX [phone]
[2020-12-27 03:20] VITALS: BP 117/47
--- NOTE | 2020-12-27 03:39 | NUR ---
Assumed pt care at 1900.Pt is alert and oriented. No sign of distress noted in pt. Pt is sitting in chair. Denies pain at the time of initial visit. Fall precaution in place. Assessment completed and documented. Pt is ambulatory with assist. Cooling system in place for left arm. Scheduled meds administered to pt. No acute events overnight. Requested for pain medication at about midnight. Continue to monitor. No further needs at this time.
[2020-12-27 09:08] LABS: HEMATOCRIT 28.5 % (37.0-47.0); HEMOGLOBIN 9.5 gm/dL (12.0-15.0); MCH 31.5 pg (26.0-34.0); MCHC 33.4 g/dL (28.0-37.0); MCV 94.3 fL (80.0-100.0); RBC 3.03 mil/uL (4.20-5.00); RDW 13.7 % (10.5-14.5)
[2020-12-27 09:17] VITALS: BP 124/50
[2020-12-27 09:23] LABS: CALCIUM 8.5 mg/dL (8.5-10.1); CREATININE 0.8 mg/dL (0.6-1.0); MAGNESIUM 1.8 mg/dL (1.8-2.4); POTASSIUM 3.9 mmol/L (3.5-5.1)
[2020-12-27 12:04] VITALS: BP 114/55
[2020-12-27 14:27] VITALS: BP 100/32
--- NOTE | 2020-12-27 14:38 | NUR ---
Pt dcing home today via family car. Hh orders noted and faxed to [facility]. They will contact the pt for start of care this weekend. No other cm interventions indicated.
--- NOTE | 2020-12-27 16:12 | NUR ---
ASSUMED CARE OF PT AT SHIFT CHANGE. ASSESSMENTS CHARTED. MEDS GIVEN PER DEC. PT A&OX4, C/O PAIN TREATED WITH PO MEDS WITH PARTIAL RELIEF. DAUGHTER AT BEDSIDE. DISCHARGE ORDERS AND INSTRUCTIONS COMPLETE. IV AND TELE DC'D. THIS NURSE TOOK PT OUT VIA WHEELCHAIR TO DAUGHTER WAITING IN CAR.
--- NOTE | 2020-12-29 10:49 | HC ---
[facility] [place] [address] CONSULTATION Name: ROBERT SON Room #: 219-P [facility] Adri Carrasco#: [id number] Admission: 12/25/20 Attend Phys: Jameson Valles Discharge: 12/27/20 Date of : 39 Report #: [id number] THIS REPORT FOR: cc: Odalis Zheng MD, Genelle J. MD Khosla, Parveen K. MD ~ DATE OF SERVICE: 12/25/2020 HISTORY OF PRESENT ILLNESS: This is an 85-year-old female patient for whom Neurology consultation is requested because of facial droop was noticed on the left side. The patient says that she has been having these symptoms where she has even numbness or weakness on the left side of the face. She was taken off of Xarelto on 12/22/2020. She never had any stroke, but she has a history of atrial fibrillation. Record indicates that she also has a history of DVT. REVIEW OF SYSTEMS: Indicate that she is back to her normal self. She is not having any symptoms in the left upper extremity now, but it comes and goes. Record indicates she also has a history of sleep apnea, glaucoma, diabetes, and hyperlipidemia. She has multiple vascular risk factors for the possibility of stroke, but she never had any stroke or TIA. PAST MEDICAL HISTORY: Positive for shoulder problem for which she had surgery. FAMILY HISTORY: Unremarkable. PHYSICAL EXAMINATION: Indicate she is alert, responsive, able to follow simple and complex command. Her speech looks unremarkable. Cranial nerve examinations appear unremarkable. I do not see any deficit, but she says she is having this intermittent deficit. Left upper extremity is difficult to examine, both lower extremities appear unremarkable. IMPRESSION: This patient is having what can be transient ischemic attack is on the left side. She is off Xarelto. She does appear to be hypercoagulable with more than one symptoms. She is going down for CT. As I understand, she has been cleared to go down for CT. If they are going to do the CT, I think we should go ahead and do the CT angiogram at the same time. If it does show some embolus or thrombus there, I am not sure if she will be a candidate for thrombectomy, but at least we might give her some heparin until the Xarelto kicks in. It should be kicking in fast. She is not a TPA candidate, both because of surgery and because she is on Xarelto and presently she does not even have much symptoms. I had a detailed discussion with the patient. I discussed with her that we can do the noncontrast CT of the head as she has been scheduled or we can do the CT [address] [address] CONSULTATION Name: ROBERT SON Room #: 219-P SIMON Carrasco#: [id number] Admission: 12/25/20 Attend Phys: Jameson Valles Discharge: 12/27/20 Date of : 39 Report #: [id number] angiogram at the same time. Her GFR is fine. I did discus with her potential side effect of CT angiogram and asked her to drink a lot of fluids. She understands the side effect very well. She understands her options very well. She wants to proceed with a CT angio at the same time when she go for a noncontrast CT, which has already been cleared and for which she is already scheduled. Thank you very much for this referral. <ELECTRONICALLY SIGNED> By: Frank Valera MD 12/29/201048 [id number] Frank Valera MD /nt
== END 2020-12-27 15:30 | disposition home health service (06) ==
LOC: OR 06:11 → TBA 06:14 → OR 10:34 → 2N 15:57 → OR 15:58 → 2N 15:58
PROVIDERS: Internal Medicine; Physician Assistant Surgical; ADMIT Orthopaedic Surgery Sports Medicine; ATTEND Orthopaedic Surgery Sports Medicine
DX: M19.012 Primary osteoarthritis, left shoulder (principal); M75.102 Unspecified rotator cuff tear or rupture of left shoulder, not specified as traumatic; R00.1 Bradycardia, unspecified; R55 Syncope and collapse; I48.91 Unspecified atrial fibrillation; H40.9 Unspecified glaucoma; G47.30 Sleep apnea, unspecified; E11.9 Type 2 diabetes mellitus without complications; E78.5 Hyperlipidemia, unspecified; G45.9 Transient cerebral ischemic attack, unspecified; R29.810 Facial weakness; Z86.718 Personal history of other venous thrombosis and embolism; Z79.01 Long term (current) use of anticoagulants; Z98.890 Other specified postprocedural states
CPT/HCPCS: 50010; 50101; 50172; 50386; 50417; 50697; 50733; 50935; 50951; 52001; 52138; 53000; 53078; 53341; 54118; 56524; 56525; 56526; 56530; 57095; 57103; 57423; 57471; 57472; 57475; 57476; 57944; 58153; 58182; 58183; 58204; 58332; 62110; 62900; 64043; 65060; 70005

== ENCOUNTER → 2021-12-04 | Outpatient (CLI) | payer OTHER | LOC: SJCVC 14:03 | PROVIDERS: ATTEND Internal Medicine Cardiovascular Disease | DX: I48.0 Paroxysmal atrial fibrillation (principal); R55 Syncope and collapse; I25.10 Atherosclerotic heart disease of native coronary artery without angina pectoris; J45.909 Unspecified asthma, uncomplicated; E78.5 Hyperlipidemia, unspecified; Z79.84 Long term (current) use of oral hypoglycemic drugs; Z79.01 Long term (current) use of anticoagulants; Z98.890 Other specified postprocedural states; Z72.89 Other problems related to lifestyle ==